=== PATIENT | female | born 1995 | race Caucasian/White ===

== ENCOUNTER 2017-07-13 18:43 | Emergency (ER) | payer BC ==
[2017-07-13 19:08] VITALS: BP 117/77
[2017-07-13] MEDS ORDERED: Acetaminophen TAB* 325 MG PO ONE (19:58)
--- NOTE | 2017-07-13 20:17 | UC ---
Tracey Reyes Gabriel, scribed for Sue Osorio MD on 07/13/17 at 1958 . Throat Pain/Nasal Samir HPI - HPI Summary HPI Summary: This patient is a 22 year old F [place] [facility] a chief complaint of a sore throat that began 24 hours ago. The patient rates the pain 7/10 in severity. Symptoms alleviated by Advil. Patient reports myalgia, chills, and fever. Patient denies n/v. PT reports fevers. + influenza exposure at school. Pt did not get flu vaccine. Patients medication reviewed during this visit. - History of Current Complaint Chief Complaint: UCRespiratory Stated Complaint: SORE THROAT Time Seen by Provider: 07/13/17 19:38 Hx Obtained From: Patient Hx Last Menstrual Period: 2 MONTHS AGO Onset/Duration: Lasting Days - 1, Still Present Pain Intensity: 7 Pain Scale Used: 0-10 Numeric Associated Signs & Symptoms: Positive: Fever, Other - chills, myalgia - Allergies/Home Medications Allergies/Adverse Reactions: Allergies Allergy/AdvReac Type Severity Reaction Status Date / Time No Known Allergies Allergy Verified 07/13/17 19:08 Home Medications: Home Medications Ferrous Fumarate [Iron] 07/13/17 [History] Ibuprofen TAB* [Advil TAB*] 400 mg PO PRN 07/13/17 [History] Menastrin Control* 1 tab PO DAILY 07/13/17 [History Confirmed 07/13/17] PMH/Surg Hx/FS Hx/Imm Hx Previously Healthy: Yes - Surgical History Surgical History: Yes Surgery Procedure, Year, and Place: WISDOM TEETH - Social History Occupation: Student Lives: Dormitory/Roommates Alcohol Use: Occasionally Substance Use Type: None Smoking Status (MU): Never Smoked Tobacco Review of Systems Constitutional: Fever, Chills ENT: Sore Throat All Other Systems Reviewed And Are Negative: Yes Physical Exam Triage Information Reviewed: Yes Appearance: Well-Appearing, No Pain Distress, Well-Nourished Vital Signs: Initial Vital Signs Temp 100.8 F 07/13/17 19:05 Pulse 107 07/13/17 19:05 Resp 16 07/13/17 19:05 BP 117/77 07/13/17 19:05 Pulse Ox 100 07/13/17 19:05 Vital Signs Reviewed: Yes Eye Exam: Normal Eyes: Positive: Conjunctiva Clear ENT Exam: Normal ENT: Positive: Normal ENT inspection, Hearing grossly normal, Pharynx normal, Pharyngeal erythema, TMs normal, Other - turbinates inflammed + PND no exudate , no erythema Dental Exam: Normal Neck exam: Normal Neck: Positive: Supple, Nontender, No Lymphadenopathy Respiratory Exam: Normal Respiratory: Positive: Chest non-tender, Lungs clear, Normal breath sounds, No respiratory distress, No accessory muscle use Cardiovascular Exam: Normal Cardiovascular: Positive: RRR, No Murmur, Pulses Normal Abdominal Exam: Normal Abdomen Description: Positive: Nontender, No Organomegaly, Soft Bowel Sounds: Positive: Present Musculoskeletal Exam: Normal Musculoskeletal: Positive: Strength Intact Neurological Exam: Normal Neurological: Positive: Alert Psychological Exam: Normal Skin Exam: Normal Throat Pain/Nasal Course/Dx - Course Assessment/Plan: Pt presents with 36 hour body ache, cough, fever today and fatigue. pt also with sore throat x 48 hours. strep neg. spoke with pt and pt 's mother by phone. Concern for influenza - test neg. will Rx prophylatic tamiflu. motrin.apap. secretion precaution. class note. f/u with [facility]. pt and mother comfortable and in agreement with plan - Differential Dx/Diagnosis Provider Diagnoses: viral syndrome Discharge - Discharge Plan Condition: Stable Disposition: HOME Prescriptions: Fluticasone NASAL * [Flonase *] 2 spray BOTH NARES DAILY #1 spray Oseltamivir CAP* [Tamiflu CAP*] 75 mg PO DAILY #10 cap Patient Education Materials: Viral Syndrome (ED) Forms: *School Release Referrals: [facility] - Alin LIEBERMAN [Primary Care Provider] - 2 Days Additional Instructions: - you have been given the prophylatic treatment for influenza - take as directed - alternate ibuprofen (Advil, Motrin) and Tylenol eveyr 3hours for pain. Take with food. Do nOT take for more than 4-5 days - use nasal spray as instructed - stay well hydrated - drink plenty of non-alcoholic, non-caffinated beverages - These infections are spread by oral secretions. Do not share eating or drinking utensils. Frequent hand washing is important. Clean items that may get your secretions on them such as cell phones, ipads, computer mouse, television remotes Once you start to feel better, change your pillowcase and your toothbrush - contact [facility] to schedule a follow-up appointment The documentation as recorded by the scribe, Webb,Wm accurately reflects the service I personally performed and the decisions made by me, Sue Osorio MD.
== END 2017-07-13 20:30 | disposition home or self-care (01) ==
LOC: UCEAST 18:43
DX: B34.9 Viral infection, unspecified (principal)
CPT/HCPCS: 87502; 87651; 99202; A9270-GY; G0463